=== PATIENT | female | born 1955 | race Caucasian/White ===

== ENCOUNTER 2019-12-24 21:08 | Emergency (ER) | payer MEDICARE, OTHER ==
[2019-12-24] MEDS ORDERED: ACETAMINOPHEN 325 MG TABLET (FP) PO ONE (22:02)
[2019-12-24 22:03] VITALS: BMI 17.4
--- NOTE | 2019-12-24 22:29 | PDOC ---
History of Present Illness - General Chief Complaint: Lightheaded Stated Complaint: NAUSEA/DIZZNESS Time Seen by Provider: 12/24/19 22:21 - History of Present Illness Initial Comments: HPI: 64yo F with PMH of asthma, HTN, HLD, DM presenting with cough, fever, and dizziness. Started having a nonproductive cough two days ago. She saw her primary care physician then and was prescribed a medication which she has been taking. Does not know what the medication is and does not know if it was an antibiotic. Also reports nausea and lessened po intake. No vomiting or abdominal pain. Reports some chest pain and shortness of breath that she had earlier today. Last used her nebulizer this morning. States her symptoms feel like the pneumonia she had about one year ago for which she was admitted to the hospital. No sick contacts or recent travel. Reports fever and chills. PCP: does not remember the name ROS: Constitutional: no fever, no chills HEENT: no throat pain, no dysphagia Cardiovascular: +chest pain, no palpitations Respiratory: +cough, +shortness of breath Gastrointestinal: +nausea, no vomiting Genitourinary: no dysuria, no hematuria Musculoskeletal: no myalgia, no arthralgia Skin: no rash, no itching Neurologic: no headache, +dizziness Psych: no agitation, no anxiety PE: General: Awake, alert, and fully oriented, in no acute distress Head: No signs of trauma Eyes: EOMI, sclera anicteric ENT: Moist mucus membranes Neck: Normal ROM, supple Lungs: Lungs clear, Normal breath sounds, No wheezes or rales appreciated Cardio: Regular rhythm, S1 and S2 present Abdomen: Soft, nontender Extremities: Normal range of motion, Distal pulses present SKIN: Warm, Dry, normal turgor Neurologic: Cranial nerves II through XII grossly intact. Normal speech. Ambulating with steady gait. ED Course/MDM: DDX including but not limited to PNA, ACS, URI, influenza Labs, EKG, CXR Tylenol 650mg Duoneb IV fluids Zofran 12/24/19 22:52 CBC WBC 4.8 K/mm3 (4.0-10.0) 12/24/19 23:30 RBC 4.93 M/mm3 (3.60-5.2) 12/24/19 23:30 Hgb 13.4 GM/dL (10.7-15.3) 12/24/19 23:30 Hct 38.8 % (32.4-45.2) 12/24/19 23:30 MCV 78.6 fl (80-96) L 12/24/19 23:30 MCH 27.1 pg (25.7-33.7) 12/24/19 23:30 MCHC 34.5 g/dl (32.0-36.0) 12/24/19 23:30 RDW 14.5 % (11.6-15.6) 12/24/19 23:30 Plt Count 188 K/MM3 (134-434) 12/24/19 23:30 MPV 8.7 fl (7.5-11.1) 12/24/19 23:30 Absolute Neuts (auto) 2.9 K/mm3 (1.5-8.0) 12/24/19 23:30 Neutrophils % 60.6 % (42.8-82.8) 12/24/19 23:30 Lymphocytes % 19.8 % (8-40) 12/24/19 23:30 Monocytes % 18.3 % (3.8-10.2) H 12/24/19 23:30 Eosinophils % 0.5 % (0-4.5) 12/24/19 23:30 Basophils % 0.8 % (0-2.0) 12/24/19 23:30 Nucleated RBC % 0 % (0-0) 12/24/19 23:30 No leukocytosis or anemia 12/24/19 23:51 Patient signed out to Dr. Ordonez and night team 12/25/19 00:03 Past History - Past Medical History Allergies/Adverse Reactions: Allergies Allergy/AdvReac Type Severity Reaction Status Date / Time No Known Allergies Allergy Verified 12/24/19 22:04 - Psycho Social/Smoking Cessation Hx Smoking History: Never smoked Have you smoked in the past 12 months: No Information on smoking cessation initiated: No Hx Alcohol Use: No Drug/Substance Use Hx: No *Physical Exam - Vital Signs Last Vital Signs Temp Pulse Resp BP Pulse Ox 103 F H 111 H 20 153/85 95 12/24/19 22:00 12/24/19 22:00 12/24/19 22:00 12/24/19 22:00 02/06/20 22:00 ED Treatment Course - LABORATORY CBC & Chemistry Diagram: 12/24/19 23:30 12/24/19 23:30 - Medications Given in the ED: ED Medications Discontinued Medications Generic Name Dose Route Start Last Admin Trade Name Rina PRN Reason Stop Dose Admin Acetaminophen 650 mg 12/24/19 22:02 12/24/19 22:09 Tylenol - PO 12/24/19 22:03 650 mg ONCE ONE Administration Discharge - Discharge Information Problems reviewed: Yes Clinical Impression/Diagnosis: Cough - Follow up/Referral - Patient Discharge Instructions Patient Printed Discharge Instructions: DI for Cough -- Adult Additional Instructions: You came into the emergency department for cough, nausea, and dizziness. We performed blood work, EKG, and an Xray which did not indicate acute pathology. Follow-up with your primary care doctor with 72 hours to discuss this ED visit and to further evaluate your symptoms. Immediate medical attention is required if you have: any chest pain, palpitations, shortness of breath, severe headaches, changes in vision, episodes of fainting, focal numbness or weakness, any severe abdominal pain, any black tarry stool, or any new or concerning symptoms. If you think you are having an emergency, call for emergency medical services or present to the emergency department right away. - Post Discharge Activity
[2019-12-24] MEDS ORDERED: ONDANSETRON 4 MG/2 ML VIAL IVPUSH ONE (23:08)
[2019-12-24] MEDS ORDERED: ALBUTEROL SO4 2.5/IPRATROPIUM 0.5 INH SOL 3 ML VIAL.NEB. NEB ONE (23:08)
[2019-12-24] MEDS ORDERED: SODIUM CHLORIDE 1,000 ML IV STA (23:10)
[2019-12-24 23:37] LABS: BASO % 0.8 % (0-2.0); EOS % 0.5 % (0-4.5); HEMATOCRIT 38.8 % (32.4-45.2); HEMOGLOBIN 13.4 GM/dL (10.7-15.3); LYMPH % 19.8 % (8-40); MCH 27.1 pg (25.7-33.7); MCHC 34.5 g/dl (32.0-36.0); MEAN CELL VOLUME 78.6 fl (80-96); MEAN PLT VOLUME 8.7 fl (7.5-11.1); MONO % 18.3 % (3.8-10.2); NEUT % 60.6 % (42.8-82.8); PLATELET COUNT 188 K/MM3 (134-434); RBC 4.93 M/mm3 (3.60-5.2); RDW 14.5 % (11.6-15.6); WHITE BLOOD COUNT 4.8 K/mm3 (4.0-10.0)
--- NOTE | 2019-12-24 23:51 | PDOC ---
Attending Attestation - Resident Resident Name: Shira Hines - ED Attending Attestation I have performed the following: I have examined & evaluated the patient, The case was reviewed & discussed with the resident, I agree w/resident's findings & plan, Exceptions are as noted - HPI HPI: 12/25/19 01:25 See resident HPI - Physicial Exam PE: 12/25/19 01:25 Agree with documented exam - Medical Decision Making 12/25/19 01:25 64M pmh DM, HTN, HLD, asthma here with 2 days of dry cough, f/c, dizziness uri, pna, asthma f/u labs, cxr symptomatic tx dispo per clinical course
[2019-12-25 00:07] LABS: ALBUMIN 3.7 g/dl (3.4-5.0); BILIRUBIN,TOTAL 0.7 mg/dL (0.2-1); CALCIUM 8.4 mg/dL (8.5-10.1); CREATININE 0.8 mg/dL (0.55-1.3); TOT PROT 7.3 g/dl (6.4-8.2)
[2019-12-25] MEDS ORDERED: ONDANSETRON 4 MG/2 ML VIAL ONE (00:24)
[2019-12-25] MEDS ORDERED: ALBUTEROL SO4 2.5/IPRATROPIUM 0.5 INH SOL 3 ML VIAL.NEB. NEB ONE (00:24)
--- NOTE | 2019-12-25 00:40 | PDOC ---
*Physical Exam - Vital Signs Last Vital Signs Temp Pulse Resp BP Pulse Ox 103 F H 111 H 20 153/85 95 12/24/19 22:00 12/24/19 22:00 12/24/19 22:00 12/24/19 22:00 12/24/19 22:00 ED Treatment Course - LABORATORY CBC & Chemistry Diagram: 12/24/19 23:30 12/24/19 23:30 - ADDITIONAL ORDERS Additional order review: Laboratory Results 12/24/19 12/24/19 23:30 23:30 Sodium 134 L Potassium 4.0 Chloride 102 Carbon Dioxide 26 Anion Gap 7 L BUN 10.0 Creatinine 0.8 Est GFR (CKD-EPI)AfAm 90.94 Est GFR (CKD-EPI)NonAf 78.46 Random Glucose 201 H Calcium 8.4 L Total Bilirubin 0.7 AST 46 H ALT 44 Creatine Kinase 68 Troponin I < 0.02 Total Protein 7.3 Albumin 3.7 12/24/19 23:30 RBC 4.93 MCV 78.6 L MCHC 34.5 RDW 14.5 MPV 8.7 Neutrophils % 60.6 Lymphocytes % 19.8 Monocytes % 18.3 H Eosinophils % 0.5 Basophils % 0.8 - Medications Given in the ED: ED Medications Discontinued Medications Generic Name Dose Route Start Last Admin Trade Name Freq PRN Reason Stop Dose Admin Acetaminophen 650 mg 12/24/19 22:02 12/24/19 22:09 Tylenol - PO 12/24/19 22:03 650 mg ONCE ONE Administration Albuterol/Ipratropium 1 amp 12/24/19 23:08 12/25/19 00:39 Duoneb - NEB 12/24/19 23:09 1 amp ONCE ONE Administration Sodium Chloride 1,000 mls @ 1,000 mls/hr 12/24/19 23:10 12/25/19 00:39 Normal Saline - IV 12/25/19 00:09 1,000 mls/hr ASDIR STA Administration Ondansetron HCl 4 mg 12/24/19 23:08 12/25/19 00:39 Zofran Injection IVPUSH 12/24/19 23:09 4 mg ONCE ONE Administration Medical Decision Making - Medical Decision Making 12/25/19 00:[address] Hines. Patient is a 64 yo female w/ pmh of HTN, HLD, DM, asthma who presents for evaluation of non-productive cough and dizziness. Patient evaluated with labs as below (grossly wnl) as well as EKG and CXR. No acute findings on CXR. Patient EKG normal sinus rhythm with no concerning features. Patient reporting improvement of symptoms following hydration. Believe patient to have a viral illness at this time. No concern for acute process and patient will f/u w/ PCP for further evaluation as needed. Discharging to home. Laboratory Results - last 24 hr 12/24/19 12/24/19 12/24/19 23:30 23:30 23:30 WBC 4.8 RBC 4.93 Hgb 13.4 Hct 38.8 MCV 78.6 L MCH 27.1 MCHC 34.5 RDW 14.5 Plt Count 188 MPV 8.7 Absolute Neuts (auto) 2.9 Neutrophils % 60.6 Lymphocytes % 19.8 Monocytes % 18.3 H Eosinophils % 0.5 Basophils % 0.8 Nucleated RBC % 0 Sodium Potassium Chloride Carbon Dioxide Anion Gap BUN Creatinine Est GFR (CKD-EPI)AfAm Est GFR (CKD-EPI)NonAf Random Glucose Calcium Total Bilirubin AST ALT Creatine Kinase 68 Troponin I < 0.02 Total Protein Albumin Influenza A (Rapid) Negative Influenza B (Rapid) Negative 12/24/19 23:30 WBC RBC Hgb Hct MCV MCH MCHC RDW Plt Count MPV Absolute Neuts (auto) Neutrophils % Lymphocytes % Monocytes % Eosinophils % Basophils % Nucleated RBC % Sodium 134 L Potassium 4.0 Chloride 102 Carbon Dioxide 26 Anion Gap 7 L BUN 10.0 Creatinine 0.8 Est GFR (CKD-EPI)AfAm 90.94 Est GFR (CKD-EPI)NonAf 78.46 Random Glucose 201 H Calcium 8.4 L Total Bilirubin 0.7 AST 46 H ALT 44 Creatine Kinase Troponin I Total Protein 7.3 Albumin 3.7 Influenza A (Rapid) Influenza B (Rapid) Discharge - Discharge Information Problems reviewed: Yes Clinical Impression/Diagnosis: Cough Disposition: HOME - Follow up/Referral - Patient Discharge Instructions Patient Printed Discharge Instructions: DI for Cough -- Adult Additional Instructions: You came into the emergency department for cough, nausea, and dizziness. We performed blood work, EKG, and an Xray which did not indicate acute pathology. Follow-up with your primary care doctor with 72 hours to discuss this ED visit and to further evaluate your symptoms. Immediate medical attention is required if you have: any chest pain, palpitations, shortness of breath, severe headaches, changes in vision, episodes of fainting, focal numbness or weakness, any severe abdominal pain, any black tarry stool, or any new or concerning symptoms. If you think you are having an emergency, call for emergency medical services or present to the emergency department right away. - Post Discharge Activity
[2019-12-25 02:31] VITALS: BP 165/79; PULSE 100; TEMP 98.2
--- NOTE | 2019-12-25 12:24 | EKG ---
Test Reason : Blood Pressure : / mmHG Vent. Rate : 091 BPM Atrial Rate : 091 BPM P-R Int : 146 ms QRS Dur : 070 ms QT Int : 326 ms P-R-T Axes : 059 005 046 degrees QTc Int : 400 ms NORMAL SINUS RHYTHM NONSPECIFIC T WAVE ABNORMALITY ABNORMAL ECG NO PREVIOUS ECGS AVAILABLE Confirmed by LAZ KRUGER MD ([id number]) on 12/25/2019 12:23:49 PM Referred By: Confirmed By:LAZ KRUGER MD
== END 2019-12-25 03:00 | disposition home or self-care (01) ==
LOC: JER 21:08
PROC: 3E033GC Introduction of Other Therapeutic Substance into Peripheral Vein, Percutaneous Approach (ICD-10-PCS; principal; 2019-12-24)
PROC: 3E0F7GC Introduction of Other Therapeutic Substance into Respiratory Tract, Via Natural or Artificial Opening (ICD-10-PCS; 2019-12-24)
DX: R05 Cough (principal); R11.0 Nausea
CPT/HCPCS: 36415; 71046-TC-FY; 80053; 82550; 84484; 85025; 87804; 93005; 93010; 99284-25; J7030